=== PATIENT | male | born 1950 | race Caucasian/White ===

== ENCOUNTER 2021-06-14 02:50 | Emergency (ER) | payer MEDICARE ==
[~2021-06-14] VITALS: Ht 180.3 cm; Wt 107.0 kg
[2021-06-14 03:03] VITALS: BP 125/94
[2021-06-14] MEDS ORDERED: TORADOL IM STA (03:09)
[2021-06-14] MEDS ORDERED: NEURONTIN PO STA (03:09)
[2021-06-14] MEDS ORDERED: NEURONTIN ONE (03:16)
[2021-06-14] MEDS ORDERED: TORADOL ONE (03:16)
[2021-06-14 03:27] LABS: BILIRUBIN,URINE NEGATIVE (NEGATIVE); UROBILINOGEN,URINE 0.2 E.U./dL (0.2)
--- NOTE | 2021-06-14 03:33 | ER.PDOC ---
General Chief Complaint: Extremities Stated Complaint: PERIPHERAL NEUROPATHY TRAVEL OUT OF US: No Time seen by MD: 03:29 Source: patient Exam Limitations: no limitations History of Present Illness Initial Comments Patient has peripheral neuropathy and is visiting here from [place]. He forgot his Neurontin and is requesting for a refill. He is complaining of pain in both feet. He also fell few days ago and is complaining of right rib pain. For the last couple of days he has been having urinary frequency. He wants it checked. Severity: moderate Associated Symptoms: chest pain (rib pain S/P fall) Allergies: Coded Allergies: No Known Allergies (Unverified , 06/14/21) Past Medical History Medical History: cardiac problems Surgical History: coronary bypass surgery Family History Significant Family History: no pertinent family hx Social History Smoking: non-smoker Alcohol Use: none Drug Use: none Review of Systems Constitutional: no symptoms reported EENTM: no symptoms reported Respiratory: no symptoms reported Cardiovascular: see HPI Gastrointestinal: no symptoms reported Genitourinary: frequency All Other Systems: Reviewed and Negative Physical Exam General Appearance: No Apparent Distress, WD/WN EENT: eyes nml inspection, nml ENT inspection Neck: Non-Tender, Full Range of Motion, Supple, Normal Inspection Respiratory: lungs clear, normal breath sounds, no respiratory distress, other (right mid anterior chest wall tenderness) CVS: reg rate & rhythm, no murmur, no gallop, pulses nml, nml capillary refill Gastrointestinal: Normal Bowel Sounds, No Organomegaly, No Pulsatile Mass, Non Tender Back: Normal Inspection, No CVA Tenderness, No Vertebral Tenderness Extremities: Normal Range of Motion, Non-Tender, Normal Inspection, No Pedal Edema, No Calf Tenderness 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, No Motor/Sensory Deficits, Alert, Normal Mood/Affect, Oriented x 3 Skin: Normal Color Lymphatic: No Adenopathy Results/Orders Results/Orders Orders - ABHINAV HULL MD Xr Ribs Rt W/Cxr (06/14/21 03:09) Urinalysis (06/14/21 03:09) Ketorolac Tromethamine (Toradol) (06/14/21 03:09) Gabapentin (Neurontin) (06/14/21 03:09) Gabapentin (Neurontin) (06/14/21 03:16) Ketorolac Tromethamine (Toradol) (3/27/22 03:16) Vital Signs Date Time Temp Pulse Resp B/P (MAP) Pulse Ox O2 Delivery O2 Flow Rate FiO2 06/14/21 03:03 97.9 67 16 99 06/14/21 03:03 97.9 67 16 125/94 (104) 99 Room Air 06/14/21 03:03 97.9 67 16 Administered Medications Medications (Trade) Dose Ordered Sig/[place] Route PRN Reason Start Time Stop Time Status Last Admin Dose Admin Gabapentin (Neurontin) 300 mg STAT STAT PO 06/14/21 03:09 06/14/21 03:15 DC 06/14/21 03:18 300 MG Ketorolac Tromethamine (Toradol) 60 mg STAT STAT IM 06/14/21 03:09 06/14/21 03:15 DC 06/14/21 03:18 60 MG Laboratory Tests Test 06/14/21 02:50 06/14/21 03:38 Urine Collection Type RANDOM Urine Color YELLOW Urine Appearance CLEAR Urine Bilirubin NEGATIVE (NEGATIVE) Urine Ketones NEGATIVE (NEGATIVE) Urine Specific [place] 1.020 (1.005-1.030) Urine pH 8.0 (4.5-8.0) Urine Protein NEGATIVE (NEGATIVE) Urine Urobilinogen 0.2 E.U./dL (0.2) Urine Nitrate NEGATIVE (NEGATIVE) Urine Leukocyte Esterase NEGATIVE (NEGATIVE) Urine Glucose (Auto)(UA) >=1000 mg/dL (NEGATIVE) H Urine Blood NEGATIVE (NEGATIVE) POC Glucose 127 (70 - 110) H Progress Progress Right rib series is normal. Patient received gabapentin and a Toradol shot. He is feeling better and ready to go home. ER DEPART Departure Time of Disposition: 04:16 Disposition: 01 HOME / SELF CARE / HOMELESS Impression: Primary Impression: Peripheral neuropathy Additional Impressions: Chest wall contusion Diabetes mellitus Condition: Improved Referrals: PCP,UNKNOWN (PCP) PRIMARY CARE PROVIDER Additional Instructions: Neurontin Ibuprofen Follow-up with your PCP next week Return to ED if worsening symptoms or concerns Duration or Time Spent with Pa: 10 min Problem Qualifiers Primary Impression: Peripheral neuropathy Peripheral neuropathy type: polyneuropathy, unspecified Qualified Codes: G62.9 - Polyneuropathy, unspecified Additional Impressions: Chest wall contusion Encounter type: initial encounter Laterality: right Qualified Codes: S20.211A - Contusion of right front wall of thorax, initial encounter Diabetes mellitus Diabetes mellitus type: other specified (including AYAAN) Diabetes mellitus terminal makeup operator insulin use: unspecified [facility] insulin use status Diabetes mellitus complication status: with other specified complication Qualified Codes: E13.69 - Other specified diabetes mellitus with other specified complication ABHINAV HULL MD Jun 14, 2021 03:33
--- NOTE | 2021-06-14 03:39 | NUR ---
Glucose per fingerstick 127mg/dL. EDP notified.
--- NOTE | 2021-06-14 04:08 | DIREP ---
PROCEDURE:XRAY RIBS W/PA CHEST [id number] COMPARISON:None. INDICATIONS:pain S/P fall FINDINGS: RIBS:No fracture. OTHER:Sternotomy wires. Calcified aorta. CONCLUSION:No acute abnormality. Dictated by: Inga Hayes M.D. on 06/14/2021 at 04:06 AM
== END 2021-06-14 04:28 | disposition home or self-care (01) ==
LOC: ER 02:50
DX: S20.211A Contusion of right front wall of thorax, initial encounter (principal); E11.42 Type 2 diabetes mellitus with diabetic polyneuropathy; Z76.0 Encounter for issue of repeat prescription; Z79.1 Long term (current) use of non-steroidal anti-inflammatories (NSAID); Z79.4 Long term (current) use of insulin; Z95.1 Presence of aortocoronary bypass graft; W19.XXXA Unspecified fall, initial encounter; Y93.89 Activity, other specified; Y92.89 Other specified places as the place of occurrence of the external cause; Y99.8 Other external cause status
CPT/HCPCS: 71101; 81003; 82948; 96372; 99283; J1885